=== PATIENT | female | born 1990 | race African-American/Black ===

== ENCOUNTER 2019-08-05 09:29 | Inpatient (IN) | payer BC ==
[~2019-08-05] VITALS: Ht 170.2 cm; Wt 63.5 kg
[2019-08-05] MEDS ORDERED: SERTRALINE20 MG/1 ML PO (09:37)
--- NOTE | 2019-08-05 09:37 | NUR ---
SE RECIBE PTE FEMENINA, ALERTA Y ORIENTADA X3, REFIERE DOLOR ABDOMINAL Y VOMITOS X10.
--- NOTE | 2019-08-05 10:49 | NUR ---
SE ORIENTA PTE Y FAMILIAR SOBRE EL TRATAMIENTO ORDENADO POR LA DRA [place] PTE ALERTA Y CONCIENTE POR 3 RN CELMER REALIZA MUESTRAS DE LABOARATORIO Y SE ADMINISTRAN MEDICAMENTO SANA ORDENADO PTE SE MANTIENE EN OBSERVACION YBAJO TRATAMIENTO EN ESPERA DE CT
--- NOTE | 2019-08-05 13:45 | NUR ---
SE ORIENTA PACIENTE SOBRE PROCESO DE ADMISION Y PROCEDIMIENTO EN DALE DE OPERACIONES, SE ORIENTA SOBRE CAMBIO DE ROPA,NO PRENDAS. AREA DE VENOPUNCION PATENTE,DIVINE DE EDEMA Y ENROJECIMIENTO. SE ADMINISTRA RINGER LACTATED AT 125ML/HR SANA ORDEN MEDICA, PACIENTE ORIENTADA SOBRE EL MISMO. SE ADMINISTRA PROTONIX 40MG IV SANA ORDEN MEDICA. PACIENTE Y FAMILIAR ORIENTADOS,VERBALIZAN ENTENDER.
== END 2019-08-07 14:47 | disposition home or self-care (01) | DRG 343 ==
LOC: ER 09:29 → SEC-K 13:24 → O/R 13:24 → SURH 17:22
PROVIDERS: ADMIT Colon & Rectal Surgery
PROC: 0DTJ4ZZ Resection of Appendix, Percutaneous Endoscopic Approach (ICD-10-PCS; principal; 2019-08-05 14:00)
DX: K35.30 Acute appendicitis with localized peritonitis, without perforation or gangrene (principal)